=== PATIENT | male | born 1980 | race African-American/Black ===

== ENCOUNTER 2018-01-05 19:50 | Emergency (ER) | payer MEDICARE, MEDICAID ==
[2018-01-05 19:56] VITALS: BP 141/94
[2018-01-05] MEDS ORDERED: QUETIAPINE FUMARATE 25 MG TABLET PO ONE (21:27)
--- NOTE | 2018-01-05 21:27 | ER Document Report ---
ED General - General Chief Complaint: Psych Problem Stated Complaint: POSSIBLE CRISIS SITUATION Time Seen by Provider: 01/05/18 20:45 TRAVEL OUTSIDE OF THE [place] IN LAST 30 DAYS: No - HPI Patient complains to provider of: agitation Onset: Other - This is a 37-year-old man who presents with his brother as well as [id number] for evaluation of worsening agitation. His brother notes that this 37-year-old man was previously cared for by his father who had a sudden recently, he has autism and is been having difficulty adjusting since. They recently moved to the area because of the transition. He denies any obvious injury or change in medications recently but notes that his brother's mood has been increasingly agitated and that he is awake and almost all points in time sometimes walking around the house for hours at a time at night. He also got upset today began to bite his own hands a couple of times. - Related Data Allergies/Adverse Reactions: No Known Allergies Allergy (Verified 01/05/18 19:51) Past Medical History - General Information source: Patient, Relative - Social History Smoking Status: Never Smoker Family History: None Patient has suicidal ideation: No Patient has homicidal ideation: No - Past Medical History Cardiac Medical History: Reports: Hx Hypertension Neurological Medical History: Reports: Hx Seizures Renal/ Medical History: Denies: Hx Peritoneal Dialysis Review of Systems - Review of Systems -: Yes All other systems reviewed and negative Physical Exam - Vital signs Vitals: Temp Pulse Resp BP Pulse Ox 98.6 F 93 18 141/94 H 98 01/05/18 19:55 01/05/18 19:55 01/05/18 19:55 01/05/18 19:55 01/05/18 19:55 - General General appearance: Appears well In distress: None - HEENT Head: Normocephalic Eyes: Normal Conjunctiva: Normal Cornea: Normal Extraocular movements intact: Yes Eyelashes: Normal Pupils: PERRL - Respiratory Respiratory status: No respiratory distress Chest status: Nontender Breath sounds: Normal Chest palpation: Normal - Cardiovascular Rhythm: Regular Heart sounds: Normal auscultation Murmur: No - Abdominal Inspection: Normal Distension: No distension Tenderness: Nontender - Back Back: Normal - Extremities General upper extremity: Normal inspection, Nontender, Normal strength, Normal temperature General lower extremity: Normal inspection, Nontender, Normal strength, Normal temperature - Neurological Cognition: Inattentive [place] Coma Scale Eye Opening: Spontaneous [place] Coma Scale Verbal: Oriented [place] Coma Scale Motor: Obeys Commands [place] Coma Scale Total: 15 Speech: Normal Motor strength normal: LUE, RUE, LLE, RLE - Psychological Associated symptoms: Other - Markedly diminished insight Course - Re-evaluation Re-evalutation: 01/07/18 02:45 This 37-year-old man with a history of autism who presents for increasing agitation. His brother is his primary caregiver, because he is having increasing agitation difficulty sleeping and labile mood I did speak to his brother and sister-in- law at length about management options. They note that they would like to if at all able avoid hospitalization and keep him at home they do not believe it represents a danger to anyone else or himself at this time. He is currently on a low-dose of BuSpar, he is also on a low-dose of his other medications. I would give him a prescription of a higher dose of BuSpar to use for his agitation as well as a dose of Seroquel. They have also been using melatonin to try and help him sleep at night and I agree with this at this time. They were encouraged to return in case of any worsening. They currently have an outpatient appointment tomorrow morning with the crisis team. They will follow- up with them on their own. They are in agreement with this plan at this time. - Vital Signs Vital signs: Temp Pulse Resp BP Pulse Ox 98.6 F 93 18 141/94 H 98 01/05/18 19:55 01/05/18 19:55 01/05/18 19:55 01/05/18 19:55 01/05/18 19:55 Discharge - Discharge Clinical Impression: Agitation Condition: Good Disposition: HOME, SELF-CARE Additional Instructions: Your seen today in the emergency department for your brothers agitation. You are given a prescription for BuSpar which he is taking already. Use the increased dose of BuSpar to help with his mood. Use the Seroquel to also help with his mood at night. Return in case of any worsening. If he has any increasing anxiety or if you feel in danger please return. Otherwise keep your appointment tomorrow. the maximum dose for buspirone is generally 15 mg twice a day. Go up slowly. Prescriptions: Quetiapine Fumarate [Seroquel 25 mg Tablet] 25 mg PO QHS #10 tablet Buspirone HCl [Buspar 10 mg Tablet] 10 mg PO BID 10 Days #30 tab
[2018-01-05] MEDS ORDERED: BUSPIRONE HCL 10 MG TABLET PO ONE (21:28)
== END 2018-01-05 21:49 | disposition home or self-care (01) ==
LOC: ER 19:50
DX: R45.1 Restlessness and agitation (principal); I10 Essential (primary) hypertension
CPT/HCPCS: 99283; A9270 ×2

== ENCOUNTER 2018-07-08 18:19 | Emergency (ER) | payer MEDICARE, OTHER ==
[2018-07-08 18:29] VITALS: BP 130/99
[2018-07-08] MEDS ORDERED: ONDANSETRON HCL INJ/PF 4 MG/2 ML SDV IV ONE (20:33)
--- NOTE | 2018-07-08 20:35 | ER Document Report ---
ED Medical Screen (RME) - General Chief Complaint: Vomiting Stated Complaint: VOMITING Time Seen by Provider: 07/08/18 20:32 Notes: Patient is a 38-year-old male mentally handicapped, autistic, seizure history. Presents to the emergency department for generalized vomiting for last 3 days. Patient is nonverbal and his brother is in the emergency room with him. Mother states patient has had generalized posttussive vomiting as well as regular vomiting for the last 2 days. States on day 1 it was streaked with blood and patient does have generalized cough, congestion. Noted that he is also had generalized vomiting. LUNGS: Clear to auscultation bilaterally, no wheezes, rales, or rhonchi. No respiratory distress. HEART: Regular rate and rhythm. No murmur ABDOMEN: Soft, non-tender. Non-distended. Bowel sounds present in all 4 quadra nts. I have greeted and performed a rapid initial assessment of this patient. A comprehensive ED assessment and evaluation of the patient, analysis of test results and completion of the medical decision making process will be conducted by additional ED providers. TRAVEL OUTSIDE OF THE [place] IN LAST 30 DAYS: No - Related Data Allergies/Adverse Reactions: No Known Allergies Allergy (Verified 07/08/18 18:22) Past Medical History - Past Medical History Cardiac Medical History: Reports: Hx Hypertension Neurological Medical History: Reports: Hx Seizures Renal/ Medical History: Denies: Hx Peritoneal Dialysis Physical Exam - Vital signs Vitals: Temp Pulse Resp BP Pulse Ox 98.1 F 80 16 130/99 H 98 07/08/18 18:28 07/08/18 18:28 07/08/18 18:28 07/08/18 18:28 07/08/18 18:28 Course - Vital Signs Vital signs: Temp Pulse Resp BP Pulse Ox 98.1 F 80 16 130/99 H 98 07/08/18 18:28 07/08/18 18:28 07/08/18 18:28 07/08/18 18:28 07/08/18 18:28
--- NOTE | 2018-07-08 22:11 | RADIOLOGY REPORT (SQ) ---
EXAM DESCRIPTION: XR CHEST 2 VIEWS COMPLETED DATE/TME: 07/08/2018 20:32 CLINICAL HISTORY: 38 years, Male, vomit/PT vomit blood COMPARISON: None. NUMBER OF VIEWS: 2 TECHNIQUE: Two-view, PA and lateral projections of the chest were obtained. LIMITATIONS: None. FINDINGS: Unremarkable cardiac and mediastinal silhouette. Heart size is normal. Lungs are clear without focal opacity, pneumothorax or pleural effusions. The visualized bones are within normal limits. IMPRESSION: No acute cardiopulmonary abnormalities. copyright 2010 [employer]- All Rights Reserved
== END 2018-07-08 23:30 | disposition left against medical advice (07) ==
LOC: ER 18:19
DX: R11.10 Vomiting, unspecified (principal); I10 Essential (primary) hypertension
CPT/HCPCS: 71046; 99281